=== PATIENT | male | born 1965 | race Asian ===

== ENCOUNTER 2021-11-23 09:10 | Emergency (ER) | payer OTHER ==
[~2021-11-23] VITALS: Ht 162.6 cm; Wt 81.7 kg
== END 2021-11-23 11:45 | disposition home or self-care (01) ==
LOC: ER 09:10
DX: S06.0X0A Concussion without loss of consciousness, initial encounter (principal); V48.5XXA Car driver injured in noncollision transport accident in traffic accident, initial encounter; E11.9 Type 2 diabetes mellitus without complications
CPT/HCPCS: 70450; 82947; 99284-25